=== PATIENT | male | born 1930 | race Two or more races ===

== ENCOUNTER 2022-06-25 17:21 | Inpatient (IN) | payer OTHER ==
[2022-06-25 17:24] VITALS: BP 117/74
[2022-06-25] MEDS ORDERED: ONDANSETRON HCL 4 MG/2 ML VIAL IV PRN (20:00)
[2022-06-25] MEDS ORDERED: ACETAMINOPHEN 325 MG TAB PO PRN (20:00)
[2022-06-25 21:15] VITALS: BP 117/74
[2022-06-25] MEDS: QUEtiapine FUMARATE 25 MG TAB PO SCH (22:00)
[2022-06-26] VITALS (8 sets, daily range): BP systolic 144–194; BP diastolic 59–86
[2022-06-26 06:48] LABS: Basophils # (auto) 0 10 ^3/uL (0-0.2); Basophils % (auto) 0.6 % (0.0-2.0); Eosinophils # (auto) 0.1 10 ^3/uL (0-0.8); Eosinophils % (auto) 0.9 % (0.0-7.0); Hematocrit 47.9 % (41.0-53.0); Hemoglobin 16.6 g/dL (13.5-17.5); Lymphocytes # (auto) 2.4 10 ^3/uL (0.4-5.4); Lymphocytes % (auto) 30.8 % (10.0-50.0); Mean Corpuscular Hemoglobin 31.6 pg (28.0-32.0); Mean Corpuscular Hgb Conc. 34.7 g/dL (32.0-36.0); Mean Corpuscular Volume 91.1 fL (80.0-100.0); Monocytes # (auto) 0.9 10 ^3/uL (0-1.3); Monocytes % (auto) 11.4 % (0.0-12.0); Neutrophils # (auto) 4.4 10 ^3/uL (1.6-8.6); Neutrophils % (auto) 56.3 % (37.0-80.0); Nucleated Red Blood Cells % 0.2 %; Red Blood Cells 5.25 10^6/uL (4.5-5.90); Red Cell Distribution Width 14.1 % (11.8-14.3); White Blood Cell 7.8 10^3/uL (4.4-10.8)
[2022-06-26 07:12] LABS: Potassium 3.9 mmol/L (3.5-5.1)
[2022-06-26 07:16] LABS: BUN/Creatinine Ratio 31.3 (10.0-20.0); Calcium 8.6 mg/dL (8.5-10.1)
[2022-06-26] MEDS: hydrALAZINE HCL 10 MG TAB PO PRN ×2 (08:59→21:28)
[2022-06-26] MEDS: QUEtiapine FUMARATE 25 MG TAB PO SCH (21:27)
[2022-06-27] MEDS ORDERED: OLANZapine 5 MG TAB PO ONE (00:30)
[2022-06-27 05:00] VITALS: BP 146/52
[2022-06-27] MEDS ORDERED: hydrALAZINE HCL 20 MG/ML VL IV SCH (06:00)
[2022-06-27] MEDS ORDERED: hydrALAZINE HCL 20 MG/ML VL IV PRN (06:15)
[2022-06-27 06:22] LABS: Basophils # (auto) 0.1 10 ^3/uL (0-0.2); Basophils % (auto) 0.4 % (0.0-2.0); Eosinophils # (auto) 0 10 ^3/uL (0-0.8); Hemoglobin 16.7 g/dL (13.5-17.5); Lymphocytes % (auto) 13.4 % (10.0-50.0); Mean Corpuscular Hemoglobin 30.8 pg (28.0-32.0); Mean Corpuscular Hgb Conc. 34.1 g/dL (32.0-36.0); Mean Corpuscular Volume 90.4 fL (80.0-100.0); Monocytes # (auto) 1.4 10 ^3/uL (0-1.3); Monocytes % (auto) 9.2 % (0.0-12.0); Neutrophils # (auto) 11.7 10 ^3/uL (1.6-8.6); Nucleated Red Blood Cells % 0.1 %; Red Blood Cells 5.42 10^6/uL (4.5-5.90); Red Cell Distribution Width 13.9 % (11.8-14.3); White Blood Cell 15.2 10^3/uL (4.4-10.8)
[2022-06-27 06:47] LABS: BUN/Creatinine Ratio 29.5 (10.0-20.0); Calcium 9.1 mg/dL (8.5-10.1); Potassium 3.8 mmol/L (3.5-5.1)
[2022-06-27 09:00] VITALS: BP 117/34
[2022-06-27 12:51] LABS: Urine Bacteria FEW /hpf (None Seen); Urine Blood Negative /uL (Negative); Urine Mucus FEW (None Seen); Urine Specific Gravity 1.025 (1.001-1.035); Urine WBC 1 /hpf (0 - 3)
[2022-06-27 13:00] VITALS: BP 126/34
[2022-06-27] MEDS ORDERED: QUET1TAB11 PO (13:17)
[2022-06-27 16:52] VITALS: BP 145/69
[2022-06-27] MEDS: QUEtiapine FUMARATE 25 MG TAB PO SCH (21:59)
[2022-06-27 22:00] VITALS: BP 123/59
[2022-06-27] MEDS ORDERED: HALOPERIDOL 1 MG TAB PO PRN (22:30)
[2022-06-27] MEDS ORDERED: HALOPERIDOL LACTATE 5 MG/ML INJ VIAL IM PRN (22:45)
[2022-06-28 00:59] LABS: Folate (Folic Acid) 7.77 ng/mL (5.38-24)
[2022-06-28 05:00] VITALS: BP 152/49
[2022-06-28 08:00] VITALS: BP 194/86
[2022-06-28 09:00] VITALS: BP 117/36
[2022-06-28 09:59] LABS: Basophils # (auto) 0.1 10 ^3/uL (0-0.2); Basophils % (auto) 0.4 % (0.0-2.0); Eosinophils # (auto) 0 10 ^3/uL (0-0.8); Hematocrit 46.2 % (41.0-53.0); Hemoglobin 15.4 g/dL (13.5-17.5); Lymphocytes # (auto) 1.7 10 ^3/uL (0.4-5.4); Lymphocytes % (auto) 11.2 % (10.0-50.0); Mean Corpuscular Hemoglobin 30.8 pg (28.0-32.0); Mean Corpuscular Hgb Conc. 33.4 g/dL (32.0-36.0); Mean Corpuscular Volume 92.2 fL (80.0-100.0); Monocytes # (auto) 1.4 10 ^3/uL (0-1.3); Monocytes % (auto) 9.5 % (0.0-12.0); Neutrophils # (auto) 11.7 10 ^3/uL (1.6-8.6); Neutrophils % (auto) 78.9 % (37.0-80.0); Nucleated Red Blood Cells % 0.1 %; Red Blood Cells 5.01 10^6/uL (4.5-5.90); Red Cell Distribution Width 14.1 % (11.8-14.3); White Blood Cell 14.9 10^3/uL (4.4-10.8)
[2022-06-28 10:18] LABS: Potassium 3.7 mmol/L (3.5-5.1)
[2022-06-28 10:27] LABS: BUN/Creatinine Ratio 33.7 (10.0-20.0); Calcium 8.3 mg/dL (8.5-10.1)
[2022-06-28] MEDS ORDERED: RISP0.5T17 PO (11:28)
[2022-06-28 13:00] VITALS: BP 114/39
[2022-06-28 17:00] VITALS: BP 149/49
== END 2022-06-28 18:30 | disposition hospice, home (50) | DRG 72 ==
LOC: CENTRAL 17:21 → TELE-CENTR 06-26 07:43 → TELE-WESTW 06-26 21:14
PROVIDERS: ADMIT Nurse Practitioner Family; ATTEND Internal Medicine
DX: G93.41 Metabolic encephalopathy (principal); I10 Essential (primary) hypertension; E03.9 Hypothyroidism, unspecified; G30.9 Alzheimer's disease, unspecified; F02.80 Dementia in other diseases classified elsewhere, unspecified severity, without behavioral disturbance, psychotic disturbance, mood disturbance, and anxiety; F17.200 Nicotine dependence, unspecified, uncomplicated; Z51.5 Encounter for palliative care; Z97.0 Presence of artificial eye; Z88.8 Allergy status to other drugs, medicaments and biological substances
CPT/HCPCS: 36415; 73080; 80048; 81001; 82607; 82746; 84443; 85025; 87081; 87086; 97163; G0378